=== PATIENT | female | born 1985 | race Caucasian/White ===

== ENCOUNTER → 2023-03-19 07:49 | Outpatient (CLI) | payer BC, SELFPAY ==
--- NOTE | ~2023-03-19 | MM_ITS ---
EXAMINATION: MM diagnostic malcom BI w ranjit HISTORY: Upper inner quadrant left breast pain. Family history of breast cancer. TECHNIQUE: ML, MLO and CC 3-D tomosynthesis images of both breasts were performed and synthetic 2-D i mages were generated. Rotated lateral craniocaudal views of right breast. CAD analysis was submitted and interpreted. COMPARISON: None BREAST PARENCHYMAL COMPOSITION: The breasts are heterogeneously dense, which may obscure small masses . FINDINGS: No suspicious mass or architectural distortion, malignant calcification, skin thickening or retraction is detected. IMPRESSION: 1. No mammographic evidence of malignancy 2. Routine annual mammographic screening beginning at age 40 is recommended unless there are earlier symptoms or physical findings of concern BI-RADS Category 1: Negative Reviewed, dictated and finalized at location A. IMPRESSION: 1. No mammographic evidence of malignancy 2. Routine annual mammographic screening beginning at age 40 is recommended unl ess there are earlier symptoms or physical findings of concern BI-RADS Category 1: Negative
--- NOTE | ~2023-03-19 | US_ITS ---
Abdominal Sonogram: Real-time sonographic imaging of the abdomen was performed. Clinical History: Epigastric pain Findings: The liver appears normal with no evidence of mass lesion or bile duct dilatation. Main por tyshawn vein demonstrates normal direction of flow. The spleen is normal in size without evidence of foca l lesion. The gallbladder is well distended, and appears normal with no evidence of gallstone or wal l thickening. The common bile duct measures 4 mm. The visualized pancreas, aorta, and IVC are unrema rkable. The right kidney measures 10.8 cm in length and the left kidney measures 11.1 cm. There is no hydronephrosis or renal calculus. Impression: Unremarkable abdominal ultrasound. Reviewed, dictated and finalized at location . Impression: Unremarkable abdominal ultrasound.
== END ==
PROVIDERS: PCP Nurse Practitioner Family; Visit Provider Nurse Practitioner Family
DX: R10.13 Epigastric pain (principal); N64.4 Mastodynia; Z80.3 Family history of malignant neoplasm of breast
CPT/HCPCS: 76700; 77062; 77066; G0279

== ENCOUNTER 2023-04-13 09:54 | Outpatient (CLI) | payer BC, SELFPAY ==
--- NOTE | 2023-04-13 09:59 | EST_ITS ---
Patient Info Name: Ene Samayoa Age: 37 years : 1985 Gender: Female Ht: 67 in Wt: 130 lbs BSA: 1.67 m2 HR: 64 bpm BP: 113 / 65 mmHg Heart Rhythm: Sinus Rhythm Exam Date: 04/13/2023 10:08 AM Exam Location: [facility] Stress Patient Status: Outpatient Admit Date: 04/13/2023 Staff Ordering Physician: Sebas Colvin DO Attending Provider: Sebas Colvin DO Exercise Technologist: Jessica Cardoso CT Exercise Physician: Sebas Colvin DO Exam Type: CA stress test treadmill Study Info Indications R07.89 - Other chest pain A treadmill exercise stress test was performed. Summary 1. 1. Negative Rene exercise stress test for ischemic ST changes by ECG criteria. 2. 2. Good functional capacity, achieving 10 METs of workload. 3. 3. Appropriate HR response to exercise. 4. 4. Appropriate HR recovery at 1 minute post exercise. 5. 5. No imaging with stress testing. 6. 6. Patient informed of the above results. Protocol: Rene Stress ECG Details Stage: REST Duration (min): 1 min : 12 sec Speed (mph): 0.0 Grade (%): 0 HR (bpm): 70 SBP (mmHg): 113 DBP (mmHg): 65 METS: --- Stage: REST Duration (min): 10 min : 17 sec Speed (mph): 0.0 Grade (%): 0 HR (bpm): 80 SBP (mmHg): 113 DBP (mmHg): 65 METS: --- Stage: STAGE 1 Duration (min): 1 min : 0 sec Speed (mph): 1.7 Grade (%): 10 HR (bpm): 115 SBP (mmHg): 113 DBP (mmHg): 65 METS: --- Stage: STAGE 1 Duration (min): 2 min : 0 sec Speed (mph): 1.7 Grade (%): 10 HR (bpm): 133 SBP (mmHg): 113 DBP (mmHg): 65 METS: --- Stage: STAGE 1 Duration (min): 3 min : 0 sec Speed (mph): 1.7 Grade (%): 10 HR (bpm): 131 SBP (mmHg): 141 DBP (mmHg): 84 METS: --- Stage: STAGE 2 Duration (min): 1 min : 0 sec Speed (mph): 2.5 Grade (%): 12 HR (bpm): 139 SBP (mmHg): 141 DBP (mmHg): 84 METS: --- Stage: STAGE 2 Duration (min): 2 min : 0 sec Speed (mph): 2.5 Grade (%): 12 HR (bpm): 141 SBP (mmHg): 148 DBP (mmHg): 70 METS: --- Stage: STAGE 2 Duration (min): 3 min : 0 sec Speed (mph): 2.5 Grade (%): 12 HR (bpm): 144 SBP (mmHg): 148 DBP (mmHg): 70 METS: --- Stage: STAGE 3 Duration (min): 1 min : 0 sec Speed (mph): 3.4 Grade (%): 14 HR (bpm): 154 SBP (mmHg): 154 DBP (mmHg): 71 METS: --- Stage: STAGE 3 Duration (min): 2 min : 0 sec Speed (mph): 3.4 Grade (%): 14 HR (bpm): 162 SBP (mmHg): 154 DBP (mmHg): 71 METS: --- Stage: STAGE 3 Duration (min): 3 min : 0 sec Speed (mph): 3.4 Grade (%): 14 HR (bpm): 162 SBP (mmHg): 167 DBP (mmHg): 75 METS: --- Stage: RECOVERY Duration (min): 0 min : 59 sec Speed (mph): 0.0 Grade (%): 0 HR (bpm): 122 SBP (mmHg): 167 DBP (mmHg): 75 METS: --- Stage: RECOVERY Duration (min): 1 min : 59 sec Speed (mph): 0.0 Grade (%): 0 HR (bpm): 95 SBP (mmHg): 167 DBP (mmHg): 75 METS:
== END 2023-04-13 09:55 | disposition home or self-care (01) ==
PROVIDERS: PCP Nurse Practitioner Family; Visit Provider Internal Medicine Cardiovascular Disease
DX: R07.9 Chest pain, unspecified (principal)
CPT/HCPCS: 93017

== ENCOUNTER 2024-06-27 05:04 | Inpatient (IN) | payer BC, SELFPAY ==
[2024-06-27] VITALS (132 sets, daily range): BP systolic 83–132; BP diastolic 49–87; PULSE 63–217; RESP 14–18; TEMP 36.3–36.9; O2SAT 86–100; BMI 27.0
--- NOTE | 2024-06-27 05:29 | LDADM ---
This patient, Ene Samayoa, was admitted to Labor/Delivery/Recovery 104 on 06/27/24 at 05:04. Plans for labor, pain management and were discussed with patient. Patient/family oriented to hospital policies and general routines including ID bracelet, bed and alarms, visiting hours, pain management, procedures, bathroom and other care routines, personal items, smoking policy, room service/diet and guest tray routines, security routines, and visiting hours. Patient/Family are encouraged to report perceived risks to care and to ask questions if they do not understand what they are told or what they should do. See OBIX for further documentation.
[2024-06-27 05:48] LABS: Basophils Percent Auto 0.2 % (0.2-1.2); Eosinophils Absolute Auto 0.1 K/mm3 (0-0.3); Eosinophils Percent Auto 0.7 % (0-4.4); Hematocrit 31.5 % (37.0-47.0); Hemoglobin 10.5 g/dL (12.0-15.0); Immature Granulocyte Percent A 1.1 % (0-0.5); Immature Platelet Fraction Pct 8.3 % (0.9-11.2); Lymphocytes Absolute Auto 1.82 K/mm3 (0.9-3.2); Lymphocytes Percent Auto 20.7 % (18.3-44.2); Mean Corpuscular HGB Conc 33.3 g/dl (32-36); Mean Corpuscular Hemoglobin 32.5 pg (26-34); Mean Corpuscular Volume 97.5 fl (80-100); Mean Platelet Volume 11.4 fl (7.4-10.4); Monocytes Absolute Auto 0.9 K/mm3 (0.1-0.6); Monocytes Percent Auto 9.8 % (2.6-8.5); Neutrophils Absolute Auto 5.9 K/mm3 (1.3-6.7); Neutrophils Percent Auto 67.5 % (45.5-73.1); Platelet Count Result 152 k/mm3 (150-375); Red Blood Count 3.23 M/mm3 (4.2-5.4); Red Cell Distribution Width 12.7 % (11.5-14.5); White Blood Count 8.8 K/mm3 (4.5-10.0)
[2024-06-27 06:38] LABS: HIV 1/2 Ab P24 Ag Result Negative (Negative)
[2024-06-27] MEDS: LACTATED RINGERS 1,000 ML 125 ML IV CONT ×2 (06:53→08:21)
[2024-06-27] MEDS: OXYTOCIN 30 UNITS/NS 500 ML 30 UNITS/500 ML BAG IV CONT (06:54)
[2024-06-27 07:13] LABS: Rapid Plasma Reagin Non-Reactive (NonReactive)
--- NOTE | 2024-06-27 07:14 | PM.IMHP ---
H&P: HPI History of Present Illness Date/Time: 06/27/24 07:14 Chief Complaint: Induction of labor Narrative: 38-year-old 2 para 1 whose last menstrual period was last menstrual 10/06/2023 EDC is 07/04/2024 presents at 39 weeks gestation for induction of labor. She has advanced cervical dilatation and she is negative for group B strep. The procedure has been otherwise uncomplicated Review of Systems Review of Systems: All systems reviewed & are unremarkable except as noted in HPI and below PMFSH Family History Family History Father Hypertension Mother Hypertension Breast cancer Squamous cell carcinoma of tonsil Grandparent Heart disease Grandparent Diabetes mellitus Hypertension Social History Social History Smoking status: Never smoker Alcohol intake: current Drinks per week: 5 Alcohol use details: beer, seltzer, wine 1 drink 4-5 a week Substance use: never Do You Feel Safe in your Home?: Yes Lack of Transportation: No Lack of Food: Never True Current Housing: I Have Housing Concerned About Future Housing: No Difficulty Paying Gas/Electric Bills: No Difficulty Paying for Meds: No Currently Unemployed: No Education: Master's Degree or Higher Difficulty w/ Childcare or Family Care: No Living arrangements: with family Occupation/Education: occupation Additional occupation/education comments: [employer] Gender identity (if verbalized by the patient): Female Spiritual care concerns: No Agree to blood products: Yes Meds Home Medications and Allergies Home Medications ?Medication ?Instructions ?Recorded ?Confirmed ?Type Albuterol .Route 07/22/23 07/22/23 History PNV gummy BYMOUTH 07/22/23 07/22/23 History Valtrex BYMOUTH 07/22/23 07/22/23 History Allergies Allergy/AdvReac Type Severity Reaction Status Date / Time No Known Allergies Allergy Unknown Verified 06/27/24 06:09 Vital Signs Vital Signs - 24 hr 06/27/24 05:17 06/27/24 05:18 06/27/24 05:22 Temperature Pulse Rate 90 Respiratory Rate Blood Pressure 125/87 Pulse Oximetry 100 99 Oxygen Delivery 06/27/24 05:27 06/27/24 05:27 06/27/24 05:28 Temperature Pulse Rate Respiratory Rate Blood Pressure Pulse Oximetry 99 99 Oxygen Delivery Room Air 06/27/24 05:30 06/27/24 05:33 06/27/24 05:37 Temperature Pulse Rate 86 Respiratory Rate Blood Pressure 122/84 Pulse Oximetry 99 100 Oxygen Delivery 06/27/24 05:42 06/27/24 05:45 06/27/24 05:47 Temperature Pulse Rate 92 Respiratory Rate Blood Pressure 118/83 Pulse Oximetry 100 100 Oxygen Delivery 06/27/24 05:52 06/27/24 05:57 06/27/24 06:01 Temperature Pulse Rate 85 Respiratory Rate Blood Pressure 125/83 Pulse Oximetry 100 100 Oxygen Delivery 06/27/24 06:06 06/27/24 06:10 06/27/24 06:11 Temperature 97.6 F Pulse Rate Respiratory Rate 16 Blood Pressure Pulse Oximetry 98 100 Oxygen Delivery 06/27/24 06:16 06/27/24 06:21 06/27/24 06:32 Temperature Pulse Rate 88 Respiratory Rate Blood Pressure 116/82 Pulse Oximetry 100 99 Oxygen Delivery 06/27/24 06:49 06/27/24 06:54 06/27/24 06:59 Temperature Pulse Rate Respiratory Rate Blood Pressure Pulse Oximetry 99 100 100 Oxygen Delivery 06/27/24 07:01 06/27/24 07:04 06/27/24 07:09 Temperature Pulse Rate 76 Respiratory Rate Blood Pressure 123/78 Pulse Oximetry 100 100 Oxygen Delivery Exam Const: General: cooperative, healthy appearing and comfortable Nutritional Appearance: average body habitus Orientation/consciousness: oriented to person, oriented to place and oriented to time HENMT: Head: normal to inspection Resp: Effort & Inspection: normal respiratory effort Cardio: Rate: regular rate Rhythm: regular rhythm Heart sounds: S1 normal heart sound present and S2 normal heart sound present GI: Inspection: normal to inspection ( gravid soft uterus) : External Female Exam: normal external appearance Speculum Exam - Vagina: normal appearance of the vagina Speculum Exam - Cervix: normal appearance of the cervix ( cervix 4/80/1. AROM clear. FHT is reassuring) H&P: Results Labs Labs: Short CBC 06/27/24 Range/Units 05:36 WBC 8.8 (4.5-10.0) K/mm3 Hgb 10.5 L (12.0-15.0) g/dL Hct 31.5 L (37.0-47.0) % Plt Count 152 (150-375) k/mm3 Assessment and Plan Assessment and plan (1) Term : Code(s): Z34.90 - Encounter for supervision of normal , unspecified, unspecified trimester Status: Acute Assessment and Plan: medical induction of labor. Spontaneous vaginal delivery expected. She is an epidural candidate
--- NOTE | 2024-06-27 12:12 | PM.OBPNLAB ---
Pain Control Date/time seen: 06/27/24 12:12 Pain control: tolerating well and epidural Pelvic Exam Dilation (cm): 7
--- NOTE | 2024-06-27 12:59 | P.PCNOB_ITS ---
OB - Vaginal Delivery Note Procedure Delivery date: 06/27/24 Events: Elective Induction of Labor Induction method: AROM Delivery augmentation: Pitocin Delivery monitor: External FHT and External Uterine Route of delivery: Episiotomy description: None Laceration Description: None Specimen: No Quantitative Blood Loss (ml): 62 Anesthesia type: Epidural Disposition: Floor Complications: No immediate complications Narrative: Patient was admitted for induction labor on the early a.m.. Artificial rupture membranes performed epidural anesthesia placed she progressed unremarkable 1st stage of labor progressed to completely dilated pushed delivered head spontaneously in the CHERELLE position. Nuchal cord checked noted be loose x1 and relieved round the occiput. Anterior posterior shoulder delivered spontaneously. Cord clamped x2 and cut infant passed off the table given Apgars of 8 [id number] 8 [id number]. Cord blood was drawn. Placenta delivered inspected intact spontaneously. Twenty of Pitocin placed in the IV to help firm the uterus. After inspecting lateral sidewalls no tears or lacerations were noted. Mom and baby doing fine at the time of dictation there were no c omplications [place] Baby Date of : 06/27/24 Time of : 12:58 Gestational Age by Date: 39 Infant gender: Male Weight (pounds): 8 Weight (ounces): 7 presentation: vertex position: Right Occiput Anterior Placenta delivery description: Spontaneous Cord Vessel Description: 3 Vessels, Nuchal Cord and Loose score one minute: 8 score five minutes: 8
--- NOTE | 2024-06-27 13:01 | P.DS_ITS ---
DS: Admitting Diagnosis Discharge Date 06/28/2024 Admitting Diagnosis term DS: Discharge Diagnosis Discharge Diagnosis (1) Term : Code(s): Z34.90 - Encounter for supervision of normal , unspecified, unspecified trimester Status: Acute DS: Summary Hospital Course Reason for hospitalization: patient was admitted for induction of labor on 06/27/2024 Hospital Course: patient underwent spontaneous vaginal delivery with epidural anesthesia. She remained afebrile. She was up, voiding without difficulty, eating regular diet, ambulating, and generally without complaints. Time Spent with Patient Time attestation: Total time spent providing and/or coordinating discharge services: Exam Const: General: cooperative, healthy appearing, comfortable and well developed Nutritional Appearance: average body habitus Orientation/consciousness: oriented to person, oriented to place and oriented to time HENMT: Head: normal to inspection Resp: Effort & Inspection: normal respiratory effort Cardio: Rate: regular rate Rhythm: regular rhythm Heart sounds: S1 normal heart sound present and S2 normal heart sound present GI: Inspection: normal to inspection ( Fundus firm below the umbilicus) DS: Data Data Completed and Pending Labs on day of discharge: Labs from last 24 hours 06/27/24 05:36 WBC 8.8 RBC 3.23 L Hgb 10.5 L Hct 31.5 L MCV 97.5 MCH 32.5 MCHC 33.3 RDW 12.7 Plt Count 152 MPV 11.4 H Immature Gran % (Auto) 1.1 H Neut % (Auto) 67.5 Lymph % (Auto) 20.7 [place] % (Auto) 9.8 H Eos % (Auto) 0.7 Baso % (Auto) 0.2 Lymph # (Auto) 1.82 [place] # (Auto) 0.9 H Eos # (Auto) 0.1 Baso # (Auto) 0.0 Abs Immat Gran (auto) 0.10 H Absolute Neuts (auto) 5.9 Absolute Nucleated RBC 0.000 Nucleated RBC % 0.0 % Immature Plt Fraction 8.3 RPR Non-reactive HIV 1&2 Ab/P24 Ag 4thGn Negative Blood Type O Positive Antibody Screen Negative Discharge Plan Discharge Attending physician on discharge: Melvin Garg Discharging Clinician: Melvin Garg Activity: may shower, no straining, may drive after 2 weeks and pelvic rest Diet: heart healthy Patient Language: Indonesian Follow-up/Referrals: Melvin Garg MD [Physician] - Discharge Medications: No Action PNV gummy BYMOUTH Rx Instructions: QD Albuterol .Route Rx Instructions: PRN Valtrex BYMOUTH Rx Instructions: PRN cold sores. Date of admission: 06/27/24 05:04 Primary Care Provider: Pilar Lynn Admitting Provider: Melvin Garg Attending physician on admission: Melvin Garg Condition: Stable
[2024-06-27] MEDS: OXYTOCIN 30 UNITS/NS 500 ML 30 UNITS/500 ML BAG 125 UNITS IV CONT (13:15)
--- NOTE | 2024-06-27 13:35 | PC.NURSE ---
Nursery RN called for assistance with . Baby latched well but mom said he came off and she needed assistance. When entering the room, mom had baby skin to skin and he was rooting and vigorous. We placed him in cradle hold on the left breast and he latched great. He was able to maintain the latch easily. He fed for at least 10 minutes while RN was present in room. Discussed with mom frequency of feeds and expectations for . Mom stated that she really just wanted to pump and bottle feed. Encouraged her that we can feed in whatever way works best for her. She knows that we can provide a breast pump for her and formula for baby if she desires. Reported to nursery RN that mom was not wanting to put baby to breast at every feeding, but would rather pump and bottle feed. On admission to the floor, primary RN stated that she told mom we can start her pumping if she desires and she should call out when she is ready.
[2024-06-27] MEDS: WITCH HAZEL 40 PADS 1 PAD TOPICAL (15:20)
[2024-06-27] MEDS: BENZOCAINE 20% AER SPR (*SP) 56 GM CAN 1 SPRAY TOPICAL (15:20)
--- NOTE | 2024-06-27 15:40 | OBPPTRN ---
Patient transferred to post room #280 via wheelchair. Support person present. Oriented to unit, room, information board, rooming in, admission packet and security measures. Patient verbalizes understanding.
[2024-06-27] MEDS: ACETAMINOPHEN 325 MG TABLET 650 MG PO ×2 (17:09→23:04)
[2024-06-27] MEDS: DOCUSATE SODIUM 100 MG CAPSULE PO (17:09)
[2024-06-27] MEDS: IBUPROFEN 600 MG TABLET PO (23:05)
[2024-06-28] MEDS: ACETAMINOPHEN 325 MG TABLET 650 MG PO (04:29)
[2024-06-28] MEDS: IBUPROFEN 600 MG TABLET PO (04:29)
[2024-06-28 04:30] VITALS: BP 124/80; PULSE 86; RESP 14; TEMP 36.8; O2SAT 99
[2024-06-28 05:00] LABS: Hematocrit 30.9 % (37.0-47.0)
--- NOTE | 2024-06-28 06:30 | P.PNOB_ITS ---
OB - PN: Subj Subjective Date/time seen: 06/28/24 06:30 Patient comments: no complaints, pain well controlled and tolerating diet [place] baby status: doing well OB - PN: Obj Data Labs 06/28/24 04:38 Labs: Laboratory Results - last 24 hr 06/27/24 06/28/24 05:36 04:38 Hgb 10.0 L Hct 30.9 L RPR Non-reactive HIV 1&2 Ab/P24 Ag 4thGn Negative Blood Type O Positive Antibody Screen Negative OB - PN A/P Assessment and Plan (1) Term : Code(s): Z34.90 - Encounter for supervision of normal , unspecified, unspecified trimester Status: Acute Plan Comments: home Time Spent With Patient Time: Total time spent is greater than 50% in coordination of care (as documented) at patient's floor/unit and/or counseling patient: Review of Systems 2 Review of Systems: All systems reviewed & are unremarkable except as noted in HPI and below Exam 2 Const: General: cooperative, healthy appearing and comfortable Nutritional Appearance: average body habitus Orientation/consciousness: oriented to person, oriented to place and oriented to time HENMT: Head: normal to inspection Resp: Effort & Inspection: normal respiratory effort Cardio: Rate: regular rate Rhythm: regular rhythm Heart sounds: S1 normal heart sound present and S2 normal heart sound present GI: Inspection: normal to inspection
[2024-06-28] MEDS: DOCUSATE SODIUM 100 MG CAPSULE PO (07:32)
[2024-06-28] MEDS: MULTIVIT/MIN/PREN/FOL AC/IRON TABLET 1 TAB PO (07:32)
--- NOTE | 2024-06-28 07:35 | PC.NURSE ---
Introductions were made, then consulted with patient to assess needs related to . Discussed with mother her?plans to feed?her and the?experience so far. Mother plans to pump and bottle feed. Instructions given on cleaning, care, usage, that there should be no pain, pumping schedule for milk production, collection, and storage of human milk. Patient was assessed for correct placement, flange size (both nipples measured 19mm, using size 24 flange), to pump for comfort and nipple stretching/stimulation for adequate milk production every 3 hours (8 times in 24 hours) 1-2 times at night. Parents are encouraged to record the pumping schedule on the feeding sheet.?Mother voiced understanding of the education shared along with mom/baby guide and the pump measurement, flange fit handout for additional resource information. Resources provided for inpatient and outpatient services with the feeding sheet and name written on the communication board. Mother voiced understanding of information and will call if there is a request for assistance. Reported to the Primary RN.
[2024-06-28 08:00] VITALS: BP 114/80; PULSE 91; RESP 18; TEMP 36.5; O2SAT 100
[2024-06-28 12:00] VITALS: BP 116/72; PULSE 90; RESP 16; TEMP 36.6; O2SAT 99
[2024-06-29 11:34] VITALS: BP 115/85; PULSE 82; RESP 18; TEMP 36.6; O2SAT 99
== END 2024-06-28 15:55 | disposition home or self-care (01) | DRG 807 ==
LOC: ANHLDR 13:04 → ANHOB2 15:58
PROVIDERS: Admitting Provider Obstetrics & Gynecology; PCP Nurse Practitioner Adult Health; Visit Provider Obstetrics & Gynecology
DX: O69.81X0 Labor and delivery complicated by cord around neck, without compression, not applicable or unspecified (principal); Z37.0 Single live birth; Z3A.39 39 weeks gestation of pregnancy
CPT/HCPCS: 36415; 85014; 85018; 85025; 85055; 86592; 86703; 86850; 86900; 86901; A9270; G0432; J2590; J2795; J7120